=== PATIENT | female | born 1990 | race Caucasian/White ===

== ENCOUNTER 2023-04-08 14:55 | Emergency (ER) | payer BC, SELFPAY ==
[2023-04-08 15:35] VITALS: BP 127/79; PULSE 82; RESP 20; TEMP 37.2; O2SAT 99; BMI 18.6
--- NOTE | 2023-04-08 16:19 | CRLHL7_ITS ---
For Patients: As a result of the 21st Century Cures Act, medical imaging exams and procedure reports are released immediately into your electronic medical record. You may view this report before your referring provider. If you have questions, please contact your health care provider. INDICATION: RLQ AND EPIGASTRIC PAIN X3 DAYS Indication: Right lower quadrant/epigastric abdominal pain. Technique: CT of the abdomen and pelvis. 48 cc of Isovue 370 IV. Coronal/sagittal reconstructive images. Comparison: None. Findings: Lung bases: There is no pleural or pericardial effusion. The heart size is normal. The lung bases demonstrate no acute airspace disease. There is no basilar pneumothorax. There is no suspicious pulmonary nodule. Abdomen/pelvis: The liver morphology is non cirrhotic. There is diffuse hepatic steatosis. No focal liver lesion. Spleen size is normal. No adrenal mass. There is no obstructive urolith. Pelvic phleboliths present. Mild fat stranding in the right perirenal space. There is no pancreatic mass or glandular atrophy. There is inflammatory fat stranding present above the duodenum. This is well seen on series 2, image 58. No drainable fluid collection. Small amount of pelvic ascites. There is no free air. There is no evidence to indicate a mechanical small bowel or colonic obstruction. There is no transition point. The appendix is normal in caliber. The appendix is seen on series 4, image 46, measuring 5 millimeters. There is no inguinal or pelvic sidewall lymphadenopathy. The retroperitoneum and gastrohepatic ligament are normal. Celiac artery and SMA are patent. CRUZITO is patent. The bone windows demonstrate no suspicious bone lesions. Vertebral body heights are maintained. Alignment is preserved on sagittal reconstruction images. Impression: 1. Inflammatory fat stranding present in the upper abdomen, adjacent to the retroperitoneal portion of the duodenum. 2. Differential diagnosis includes acute interstitial edematous pancreatitis or duodenitis. 3. Suggest correlation with lipase levels. There is no drainable fluid collection, extraluminal gas, or evidence for necrotizing pancreatitis. 4. Normal caliber appendix. No periappendiceal inflammatory changes. 5. Case discussed with Dr. Cuellar, 04/08/23, 1735 hours. Dictated by Kory Nicolas MD @ 04/08/2023 5:37:12 PM Please note that all CT scans at this facility use dose modulation, iterative reconstruction, and/or weight-based dosing when appropriate to reduce radiation dose to as low as reasonably achievable. Dictated by: Kory Nicolas MD @ 04/08/2023 17:37:22 (Electronically Signed)
--- NOTE | 2023-04-08 16:23 | ED_ITS ---
HPI - General Adult General Date Seen: 04/08/23 Chief complaint: Abdominal Pain Stated complaint: abdominal pain Time Seen by Provider: 04/08/23 16:05 Source: patient Mode of arrival: ambulatory Limitations: no limitations History of Present Illness HPI narrative: Patient is a 32-year-old seen for abdominal and back pain for 3 days duration. She says that it waxes and wanes, at its most severe is very painful although sometimes it fades down to a more minimal pain. It has never gone away. Nothing seems to help or make it worse, she has not taken any medications at home because she says she does not like to take pills. She has had some nausea when the pain is severe, no vomiting. She has both epigastric pain and then right lower back and right lateral abdominal pain. Appetite has been decreased secondary to nausea. She has not had a bowel movement today, denies constipation, no diarrhea. Does have a history of endometriosis but this is typically pelvic in location. She has had temperatures in the 99 range, it went up to 100 once. Denies urinary symptoms aside from it looking more concentrated today. She says that she did drink yesterday for new 's Ruth the does not drink a lot otherwise. She denies any drug use. She vapes nicotine. No prior abdominal surgeries. Her last period was February 28, she says her periods are not regular. She is not on control, not actively trying to get . Related Data Allergies Allergy/AdvReac Type Severity Reaction Status Date / Time No Known Drug Allergies Allergy Verified 04/08/23 16:59 Review of Systems Status of ROS: Reports: 10 or more systems reviewed and unremarkable except as noted in History and below [facility] Social History Smoking Status: Current every day smoker Do you use any of these nicotine containing products: Vaping Products Second hand tobacco smoke exposure: No How often do you have a drink containing alcohol: 2-3 times a week How many standard drinks containing alcohol do you have on a typical day: 1 or 2 How often do you have six or more drinks on one occasion: Never AUDIT-C Alcohol total score: 3 Non-prescribed substance use: denies use Exam Narrative: Exam Narrative: Vital signs as noted above. In general, an alert, nontoxic young woman. She looks comfortable at this time. Head: Normocephalic, atraumatic. Eyes: Pupils are equal reactive. Extraocular movements are full. Conjunctivae are normal. ENT: Mucous membranes are moist. Throat is normal. Neck: Supple without lymphadenopathy. Heart: Regular rate and rhythm. No murmur or rub. Lungs: Clear bilaterally. No increased work of breathing, crackles or wheezes. Abdomen: Soft and nondistended. She has epigastric tenderness, less so right upper quadrant tenderness, tenderness in the right lower quadrant at McBurney's point with some voluntary guarding. No CVA tenderness. Extremities: Well perfused. No edema. No calf tenderness. Pulses intact. Neurologic: Patient is alert and oriented to person and place. Speech is fluent. Face is symmetric. Moves all extremities equally. Affect: Normal. Skin: Warm and dry. Well perfused. Const: Vital Signs, click to edit/add: Vital Signs - 24 hr 04/08/23 15:35 04/08/23 18:10 Temperature 99.0 F Pulse Rate [Pulse Oximeter] 82 86 Respiratory Rate 20 Blood Pressure [Ri ght Upper Arm] 127/79 115/81 Pulse Oximetry 99 99 Oxygen Delivery Me thod Room Air Room Air Documenting provider has reviewed patient's vital signs: yes Course Course ED Course: Diagnostic considerations are broad at this time. Epigastric pain is little unusual for appendicitis but that remains on the differential. Gastritis, cholecystitis, biliary colic, pancreatitis, UTI, kidney stone, ectopic , other ovarian pathology all remain on the differential at this time. Will give her some Toradol, fluids, Zofran. I have ordered a CT of the abdomen as I think given all of the possibilities this will give us the most information. I think the likelihood of this being purely ovarian for example ovarian cyst or torsion is low given the predominance of epigastric pain. Labs notable for a negative test, white blood cell count of 10, hemog lobin of 12.3. Metabolic panel fairly unremarkable, potassium slightly low at 3.3. Total bilirubin is 1.1, direct is 0.2, AST mildly elevated at 52 but ALT and alk-phos are normal. CRP mildly elevated at 3.5 and lipase elevated at 700. Urinalysis shows 4+ ketones, 2+ blood which I think is likely related to concentration of the urine. 2-5 red cells, 5-10 white cells many squames likely a contaminated specimen. CT by my review showed peripancreatic inflammation, she has some free fluid in the pelvis, final radiology read is as follows:Findings: Lung bases: There is no pleural or pericardial effusion. The heart size is normal. The lung bases demonstrate no acute airspace disease. There is no basilar pneumothorax. There is no suspicious pulmonary nodule. Abdomen/pelvis: The liver morphology is non cirrhotic. There is diffuse hepatic steatosis. No focal liver lesion. Spleen size is normal. No adrenal mass. There is no obstructive urolith. Pelvic phleboliths present. Mild fat stranding in the right perirenal space. There is no pancreatic mass or glandular atrophy. There is inflammatory fat stranding present above the duodenum. This is well seen on series 2, image 58. No drainable fluid collection. Small amount of pelvic ascites. There is no free air. There is no evidence to indicate a mechanical small bowel or colonic obstruction. There is no transition point. The appendix is normal in caliber. The appendix is seen on series 4, image 46, measuring 5 millimeters. There is no inguinal or pelvic sidewall lymphadenopathy. The retroperitoneum and gastrohepatic ligament are normal. Celiac artery and SMA are patent. CRUZITO is patent. The bone windows demonstrate no suspicious bone lesions. Vertebral body heights are maintained. Alignment is preserved on sagittal reconstruction images. Impression: 1. Inflammatory fat stranding present in the upper abdomen, adjacent to the retroperitoneal portion of the duodenum. 2. Differential diagnosis includes acute interstitial edematous pancreatitis or duodenitis. 3. Suggest correlation with lipase levels. There is no drainable fluid collection, extraluminal gas, or evidence for necrotizing pancreatitis. 4. Normal caliber appendix. No periappendiceal inflammatory changes. 5. Case discussed with Dr. Cuellar, 04/08/23, 1735 hours. I have discussed the diagnosis with the patient. In asking her more pointedly about her alcohol use, she says she drinks every weekend but she says she just drinks on the weekends. She notes that she was drinking a lot of vodka and has tried to cut back to seltzers. She denies prior history of pancreatitis. She did drink vodka yesterday with the holiday. I have reviewed with her that the pancreatitis is almost certainly secondary to alcohol use, that she should m inimize this in the future, and seek help if she finds that difficult to do. She does note that her brother has a history of drug addiction, she as a result does not take any kind of pain pills. She is not having any vomiting, is not requiring or interested in narcotic pain medication, I think it is reasonable to let her go home. Recommend clear fluids for the next couple of days, advance diet as able. Abstain from alcohol. Discussed reasons to return such as severe worsening pain, fevers, vomiting or other acute changes. Vital Signs Vital signs: Initial Vital Signs Temperature 99.0 F 04/08/23 15:35 Temperature Source Temporal Artery Scan 04/08/23 15:35 Pulse Rate 82 04/08/23 15:35 Respiratory Rate 20 04/08/23 15:35 Blood Pressure 127/79 04/08/23 15:35 Blood Pressure Mean 95 04/08/23 15:35 Pulse Oximetry 99 04/08/23 15:35 Oxygen Delivery Method Room Air 04/08/23 15:35 Vital Signs Temperature 99.0 F 04/08/23 15:35 Pulse Rate 82 04/08/23 15:35 Respiratory Rate 20 04/08/23 15:35 Blood Pressure 127/79 04/08/23 15:35 Pulse Oximetry 99 04/08/23 15:35 Oxygen Delivery Method Room Air 04/08/23 15:35 Temperature 99.0 F 04/08/23 15:35 Pulse Rate 86 04/08/23 18:10 Respiratory Rate 20 04/08/23 15:35 Blood Pressure 115/81 04/08/23 18:10 Pulse Oximetry 99 04/08/23 18:10 Oxygen Delivery Method Room Air 04/08/23 18:10 Medications Administered Medications: Discontinued Medications Generic Name Dose Route Start Last Admin Trade Name Freq PRN Reason Stop Dose Admin Sodium Chloride 1,000 mls @ 1,000 mls/hr 04/08/23 16:30 04/08/23 18:15 0.9 % Sodium Chloride 1000 Ml IV 04/08/23 17:29 Infused .Q1H KATHRINE Infusion Ketorolac Tromethamine 15 mg 04/08/23 16:17 04/08/23 16:50 Ketorolac 15 Mg/Ml Inj IVP 04/08/23 16:18 15 mg ONCE ONE Administration Ondansetron HCl 4 mg 04/08/23 16:17 04/08/23 16:50 Ondansetron 2 Mg/Ml Inj IVP 04/08/23 16:18 4 mg ONCE ONE Administration Medical Decision Making Lab Data Labs: Lab Results 04/08/23 04/08/23 Range/Units 16:28 16:32 WBC 9.98 (4.50-11.00) K/uL RBC 3.30 L (4.00-5.20) m/uL Hgb 12.3 (12.0-16.0) gm/dL Hct 36.4 (33.0-51.0) % MCV 110 H (80-100) fL MCH 37 H (26-34) pg MCHC 34 (32-36) gm/dL RDW Coeff of Unruly 14.0 (11.5-15.5) % Plt Count 250 (140-440) K/uL Neut % (Auto) 79.8 H (42.0-72.0) % Lymph % (Auto) 12.5 L (20-44) % [place] % (Auto) 6.9 (0.0-11.0) % Eos % (Auto) 0.3 (0.0-7.0) % Baso % (Auto) 0.2 (0.0-3.0) % Neut # (Auto) 8.00 H (1.7-7.0) K/uL Lymph # (Auto) 1.20 (0.90-2.90) K/uL [place] # (Auto) 0.70 (0.00-0.90) K/UL Eos # (Auto) 0.03 (0.00-0.50) K/uL Baso # (Auto) 0.02 (0.00-0.30) K/uL Abs Immat Gran (auto) 0.03 (0.00-0.30) K/uL Imm/Tot Granulo (auto) 0.3 % Sodium 137 (135-149) mmol/L Potassium 3.3 L (3.6-5.1) mmol/L Chloride 100 (96-114) mmol/L Carbon Dioxide 22 (20-32) mmol/L Anion Gap 15 (7-15) mEq/L BUN 7 (5-24) mg/dL Creatinine 0.4 L (0.5-1.5) mg/dL Estimated Creat Clear 139.92 Estimated GFR 133 ml/min Glucose 82 (60-115) mg/dL Calcium 8.8 (8.4-10.6) mg/dL Total Bilirubin 1.1 (0.1-1.5) mg/dL Direct Bilirubin 0.2 (0.0-0.5) mg/dL AST 52 H (12-35) U/L ALT 30 (4-35) U/L Alkaline Phosphatase 71 (40-150) U/L C-Reactive Protein 3.5 H (0.5-1.0) mg/dL Total Protein 7.5 (6.0-8.3) g/dL Albumin 4.7 (3.3-5.0) g/dL Lipase 701 H (23-300) U/L Urine Color Yellow (Yellow) Urine Appearance Cloudy A (Clear) Urine pH 5.5 (5.0-8.5) Ur Specific [place] >= 1.030 (1.000-1.030) Urine Protein 1+ A (Negative) Urine Glucose (UA) Negative (Negative) Urine Ketones 4+ A (Negative) Urine Blood 2+ A (Negative) Urine Nitrite Negative (Negative) Urine Bilirubin 1+ A (Negative) Urine Urobilinogen 0.2 (0.2-1.0) Ur Leukocyte Esterase Trace A (Negative) Urine RBC 2-5 A (0-2) Urine WBC 5-10 A (0-5) Ur Squamous Epith Cells Many A (None-Few) Urine Bacteria Few A (None) Urine HCG, Qual Negative (Negative) Discharge Plan Discharge Clinical Impression: Pancreatitis Patient Disposition: Home, Self-Care Condition: Stable Instructions: Pancreatitis (ED) Additional Instructions: Clear liquids for 24-48 hours, okay to advance to bland food after 24 hours if you are feeling better, but if symptoms worsen you may need to go back to clear liquids for another day or 2. For vomiting, severe uncontrolled pain, fevers, or other general worsening return to the emergency department. I suspect that your pancreatitis is associated with alcohol use, and therefore would recommend that you minimize alcohol intake in the future. There is high likelihood that you will develop pancreatitis again if you drink significant amounts of alcohol. You can use Zofran for nausea if needed. Tylenol or ibuprofen for pain. Recheck with primary care in about a week. Follow Up/Referrals: Opal Prado, DO [Primary Care Provider] - Stand Alone Forms: MyHealth Info Instructions
[2023-04-08 16:32] LABS: Appearance Urine Cloudy (Clear); Bilirubin Urine 1+ (Negative); Blood Urine 2+ (Negative); Color Urine Yellow (Yellow); Glucose Urine Negative (Negative); Ketones Urine 4+ (Negative); Leukocyte Esterase Urine Trace (Negative); Nitrite Urine Negative (Negative); Protein Urine 1+ (Negative); Specific Gravity Urine >= 1.030 (1.000-1.030); Urobilinogen Urine 0.2 (0.2-1.0); pH Urine 5.5 (5.0-8.5)
[2023-04-08 16:36] LABS: Ur HCG Qualitative* Negative (Negative)
[2023-04-08 16:44] LABS: Bacteria Urine Few; Squamous Epithelial Cell Urine Many (None-Few)
[2023-04-08] MEDS: KETOROLAC 15 MG/ML inj IVP (16:50)
[2023-04-08] MEDS: 0.9 % SODIUM CHLORIDE 1000 ml 1,000 ML IV (16:50)
[2023-04-08] MEDS: ONDANSETRON 2 MG/ML inj 4 MG IVP (16:50)
[2023-04-08 17:05] LABS: Basophils Absolute Auto 0.02 K/uL (0.00-0.30); Basophils Percent Auto 0.2 % (0.0-3.0); Eosinophils Absolute Auto 0.03 K/uL (0.00-0.50); Eosinophils Percent Auto 0.3 % (0.0-7.0); Hematocrit 36.4 % (33.0-51.0); Hemoglobin* 12.3 gm/dL (12.0-16.0); Immature Granulocytes Abs Auto 0.03 K/uL (0.00-0.30); Immature Granulocytes Pct Auto 0.3 %; Lymphocytes Percent Auto 12.5 % (20-44); Mean Corpuscular HGB Conc 34 gm/dL (32-36); Mean Corpuscular Hemoglobin 37 pg (26-34); Mean Corpuscular Volume 110 fL (80-100); Monocytes Percent Auto 6.9 % (0.0-11.0); Neutrophils Percent Auto 79.8 % (42.0-72.0); Platelet Count* 250 K/uL (140-440); White Blood Count* 9.98 K/uL (4.50-11.00)
[2023-04-08 17:18] LABS: Chloride* 100 mmol/L (96-114)
[2023-04-08 17:19] LABS: Albumin* 4.7 g/dL (3.3-5.0); Slide Review Reflex No; Sodium* 137 mmol/L (135-149)
[2023-04-08 17:20] LABS: Potassium* 3.3 mmol/L (3.6-5.1)
[2023-04-08 17:22] LABS: Alkaline Phosphatase* 71 U/L (40-150); Anion Gap 15 mEq/L (7-15); Aspartate Amino Transferase* 52 U/L (12-35); Bilirubin Direct* 0.2 mg/dL (0.0-0.5); Bilirubin Total* 1.1 mg/dL (0.1-1.5); Blood Urea Nitrogen* 7 mg/dL (5-24); Carbon Dioxide* 22 mmol/L (20-32); Creatinine* 0.4 mg/dL (0.5-1.5); Est. Creatinine Clearance* 139.92; Estimated Glomerular Filt Rate 133 ml/min; Total Protein* 7.5 g/dL (6.0-8.3)
[2023-04-08 17:23] LABS: Alanine Aminotransferase* 30 U/L (4-35); Calcium* 8.8 mg/dL (8.4-10.6); Glucose* 82 mg/dL (60-115); Lipase* 701 U/L (23-300)
[2023-04-08 17:25] LABS: C Reactive Protein* 3.5 mg/dL (0.5-1.0)
[2023-04-08 18:10] VITALS: BP 115/81; PULSE 86; O2SAT 99
== END 2023-04-08 18:45 | disposition home or self-care (01) ==
PROVIDERS: Emergency Provider Emergency Medicine; PCP Family Medicine
DX: K85.20 Alcohol induced acute pancreatitis without necrosis or infection (principal)
CPT/HCPCS: 36415; 74177; 80048; 80076; 81001; 81025; 83690; 85025; 86140; 87086; 96374; 96375; 99284; J1885; J2405; J7030; Q9967

== ENCOUNTER 2023-06-17 04:07 | Emergency (ER) | payer BC, SELFPAY ==
[2023-06-17] VITALS (20 sets, daily range): BP systolic 95–143; BP diastolic 54–105; PULSE 77–107; RESP 16; TEMP 36.9–37; O2SAT 95–100; BMI 17.8
[2023-06-17 04:47] LABS: Lactate* 1.8 mmol/L (0.5-1.9)
[2023-06-17 04:48] LABS: Basophils Percent Auto 0.1 % (0.0-3.0); Hematocrit 43.5 % (33.0-51.0); Hemoglobin* 14.7 gm/dL (12.0-16.0); Immature Granulocytes Pct Auto 0.4 %; Lymphocytes Percent Auto 5.5 % (20-44); Mean Corpuscular HGB Conc 34 gm/dL (32-36); Mean Corpuscular Hemoglobin 32 pg (26-34); Mean Corpuscular Volume 96 fL (80-100); Monocytes Percent Auto 5.1 % (0.0-11.0); Neutrophils Percent Auto 88.9 % (42.0-72.0); Platelet Count* 291 K/uL (140-440); RDW Coefficient of Variation % 14.5 % (11.5-15.5); Red Blood Count 4.54 m/uL (4.00-5.20); White Blood Count* 19.62 K/uL (4.50-11.00)
[2023-06-17 04:50] LABS: Slide Review Reflex No
[2023-06-17 04:51] LABS: Albumin* 5.5 g/dL (3.3-5.0); Chloride* 94 mmol/L (96-114); Sodium* 134 mmol/L (135-149)
--- NOTE | 2023-06-17 04:51 | ED_ITS ---
HPI - General Adult General Chief complaint: Nausea/Vomiting <Callie Brown MD - Last Filed: 06/17/23 23:57> Stated complaint: pancreatitis <Callie Brown MD - Last Filed: 06/17/23 23:57> Time Seen by Provider: 06/17/23 04:17 <Callie Brown MD - Last Filed: 06/17/23 23:57> History of Present Illness HPI narrative: 32-year-old female presents the emergency department with 3 days of abdominal pain, nausea and vomiting. She has a history of chronic GERD for the past 15+ years, typically uses daily omeprazole. She does have a history of heavy alcohol use and liver disease in the past. Reports that she had pancreatitis back in April, did not need to be hospitalized. States that her pain feels similar to that episode. We were able to pull up an a line and note from May. It looks like she saw her primary care provider for chronic castle creatitis and GERD. At that time it states that she was not drinking any alcohol. BMI was only 17 at the time. It looked like she was started on some sucralfate to go with her omeprazole. Patient denies any significant changes since. She has an endoscopy scheduled for July 07. Denies any prior endoscopy or history of GI bleed. No bloody stools, no bloody vomit. No fevers. No trauma or injury. No urinary changes, denies chance of . Pain is constant, mid abdomen and radiates to the back. Has not tried taking any pain medication for this as she cannot even hold down water. Past medical history notable for chronic pancreatitis and GERD. Current home meds omeprazole and has a prescription for Carafate. Denies use of alcohol, cigarettes or marijuana. ROS notable for the GI symptoms as described above, otherwise also notable for dizziness with standing and some ringing in her right ear with standing, associated with the dizziness. <Callie Brown MD - Last Filed: 06/17/23 23:57> Related Data Home medications: Home Medications Medication Instructions Recorded Confirmed cyanocobalamin (vitamin B-12) PO 06/17/23 omeprazole 40 mg capsule,delayed 40 mg PO DAILY 06/17/23 06/17/23 release ondansetron 4 mg disintegrating 4 mg PO Q6-8H PRN 06/17/23 06/17/23 tablet <Callie Brown MD - Last Filed: 06/17/23 23:57> Allergies/adverse reactions: Allergies Allergy/AdvReac Type Severity Reaction Status Date / Time No Known Drug Allergies Allergy Verified 04/08/23 16:59 <Callie Brown MD - Last Filed: 06/17/23 23:57> PFSH PFSH Medical History: Medical History Alcohol-induced pancreatitis ?K85.20 - Alcohol induced acute pancreatitis without necrosis or infection (ICD-10) GERD (gastroesophageal reflux disease) ?K21.9 - Gastro-esophageal reflux disease without esophagitis (ICD-10) Alcoholic liver disease ?K70.9 - Alcoholic liver disease, unspecified (ICD-10) Macrocytic anemia ?D53.9 - Nutritional anemia, unspecified (ICD-10) Fatty liver ?K76.0 - Fatty (change of) liver, not elsewhere classified (ICD-10) HTN (hypertension) ?I10 - Essential (primary) hypertension (ICD-10) 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) Palpitations ?R00.2 - Palpitations (ICD-10) Anxiety ?F41.9 - Anxiety disorder, unspecified (ICD-10) Major depression ?F32.9 - Major depressive disorder, single episode, unspecified (ICD-10) Dysmenorrhea ?N94.6 - Dysmenorrhea, unspecified (ICD-10) <Callie Brown MD - Last Filed: 06/17/23 23:57> Social History: Social History Smoking Status: Current every day smoker Do you use any of these nicotine containing products: Vaping Products Second hand tobacco smoke exposure: No How often do you have a drink containing alcohol: never How often do you have six or more drinks on one occasion: Never AUDIT-C Alcohol total score: 0 Non-prescribed substance use: denies use <Callie Brown MD - Last Filed: 06/17/23 23:57> Exam Const: Vital Signs, click to edit/add: Vital Signs - 24 hr 06/17/23 04:18 06/17/23 05:10 06/17/23 06:01 Temperature 98.5 F Pulse Rate 82 89 Pulse Rate [Pulse Oximeter] 107 H Respiratory Rate 16 16 16 Blood Pressure 127/85 108/74 Blood Pressure [Le ft Upper Arm] 143/105 H Pulse Oximetry 98 100 98 Oxygen Delivery Me thod Room Air 06/17/23 06:23 06/17/23 06:24 06/17/23 06:30 Temperature Pulse Rate 95 96 87 Pulse Rate [Pulse Oximeter] Respiratory Rate 16 Blood Pressure 98/73 Blood Pressure [Le ft Upper Arm] Pulse Oximetry 99 99 99 Oxygen Delivery Me thod 06/17/23 06:45 06/17/23 07:00 06/17/23 07:02 Temperature Pulse Rate 87 92 90 Pulse Rate [Pulse Oximeter] Respiratory Rate 16 Blood Pressure 114/65 Blood Pressure [Le ft Upper Arm] Pulse Oximetry 99 100 100 Oxygen Delivery Me thod 06/17/23 07:15 06/17/23 07:30 06/17/23 07:41 Temperature Pulse Rate 82 88 Pulse Rate [Pulse Oximeter] Respiratory Rate 16 Blood Pressure 113/82 Blood Pressure [Le ft Upper Arm] Pulse Oximetry 100 97 Oxygen Delivery Me thod 06/17/23 09:15 06/17/23 09:16 06/17/23 11:43 Temperature 98.6 F Pulse Rate 77 80 Pulse Rate [Pulse Oximeter] 92 Respiratory Rate 16 16 Blood Pressure 100/64 Blood Pressure [Le ft Upper Arm] 95/65 Pulse Oximetry 98 98 98 Oxygen Delivery Me thod Room Air 06/17/23 11:44 06/17/23 14:16 06/17/23 14:17 Temperature 98.4 F Pulse Rate 79 Pulse Rate [Pulse Oximeter] 88 Respiratory Rate 16 Blood Pressure 95/65 102/54 L Blood Pressure [Le ft Upper Arm] 102/54 L Pulse Oximetry 98 95 Oxygen Delivery Me thod Room Air 06/17/23 15:42 06/17/23 17:39 Temperature Pulse Rate Pulse Rate [Pulse Oximeter] Respiratory Rate Blood Pressure 109/71 132/74 Blood Pressure [Le ft Upper Arm] Pulse Oximetry Oxygen Delivery Me thod <Callie Brown MD - Last Filed: 06/17/23 23:57> Vital Signs, click to edit/add: Vital Signs - 24 hr 06/17/23 04:18 06/17/23 05:10 06/17/23 06:01 Temperature 98.5 F Pulse Rate 82 89 Pulse Rate [Pulse Oximeter] 107 H Respiratory Rate 16 16 16 Blood Pressure 127/85 108/74 Blood Pressure [Le ft Upper Arm] 143/105 H Pulse Oximetry 98 100 98 Oxygen Delivery Me thod Room Air 06/17/23 06:23 06/17/23 06:24 06/17/23 06:30 Temperature Pulse Rate 95 96 87 Pulse Rate [Pulse Oximeter] Respiratory Rate 16 Blood Pressure 98/73 Blood Pressure [Le ft Upper Arm] Pulse Oximetry 99 99 99 Oxygen Delivery Me thod 06/17/23 06:45 06/17/23 07:00 06/17/23 07:02 Temperature Pulse Rate 87 92 90 Pulse Rate [Pulse Oximeter] Respiratory Rate 16 Blood Pressure 114/65 Blood Pressure [Le ft Upper Arm] Pulse Oximetry 99 100 100 Oxygen Delivery Me thod 06/17/23 07:15 06/17/23 07:30 06/17/23 07:41 Temperature Pulse Rate 82 88 Pulse Rate [Pulse Oximeter] Respiratory Rate 16 Blood Pressure 113/82 Blood Pressure [Le ft Upper Arm] Pulse Oximetry 100 97 Oxygen Delivery Me thod 06/17/23 09:15 06/17/23 09:16 06/17/23 11:43 Temperature 98.6 F Pulse Rate 77 80 Pulse Rate [Pulse Oximeter] 92 Respiratory Rate 16 16 Blood Pressure 100/64 Blood Pressure [Le ft Upper Arm] 95/65 Pulse Oximetry 98 98 98 Oxygen Delivery Me thod Room Air 06/17/23 11:44 06/17/23 14:16 06/17/23 14:17 Temperature 98.4 F Pulse Rate 79 Pulse Rate [Pulse Oximeter] 88 Respiratory Rate 16 Blood Pressure 95/65 102/54 L Blood Pressure [Le ft Upper Arm] 102/54 L Pulse Oximetry 98 95 Oxygen Delivery Me thod Room Air 06/17/23 15:42 06/17/23 17:39 Temperature Pulse Rate Pulse Rate [Pulse Oximeter] Respiratory Rate Blood Pressure 109/71 132/74 Blood Pressure [Le ft Upper Arm] Pulse Oximetry Oxygen Delivery Me thod <Pasquale Zavala MD - Last Filed: 06/25/23 05:49> Vital Signs, click to edit/add: Vital Signs - 24 hr 06/17/23 04:18 06/17/23 05:10 06/17/23 06:01 Temperature 98.5 F Pulse Rate 82 89 Pulse Rate [Pulse Oximeter] 107 H Respiratory Rate 16 16 16 Blood Pressure 127/85 108/74 Blood Pressure [Le ft Upper Arm] 143/105 H Pulse Oximetry 98 100 98 Oxygen Delivery Me thod Room Air 06/17/23 06:23 06/17/23 06:24 06/17/23 06:30 Temperature Pulse Rate 95 96 87 Pulse Rate [Pulse Oximeter] Respiratory Rate 16 Blood Pressure 98/73 Blood Pressure [Le ft Upper Arm] Pulse Oximetry 99 99 99 Oxygen Delivery Me thod 06/17/23 06:45 06/17/23 07:00 06/17/23 07:02 Temperature Pulse Rate 87 92 90 Pulse Rate [Pulse Oximeter] Respiratory Rate 16 Blood Pressure 114/65 Blood Pressure [Le ft Upper Arm] Pulse Oximetry 99 100 100 Oxygen Delivery Me thod 06/17/23 07:15 06/17/23 07:30 06/17/23 07:41 Temperature Pulse Rate 82 88 Pulse Rate [Pulse Oximeter] Respiratory Rate 16 Blood Pressure 113/82 Blood Pressure [Le ft Upper Arm] Pulse Oximetry 100 97 Oxygen Delivery Me thod 06/17/23 09:15 06/17/23 09:16 06/17/23 11:43 Temperature 98.6 F Pulse Rate 77 80 Pulse Rate [Pulse Oximeter] 92 Respiratory Rate 16 16 Blood Pressure 100/64 Blood Pressure [Le ft Upper Arm] 95/65 Pulse Oximetry 98 98 98 Oxygen Delivery Me thod Room Air 06/17/23 11:44 06/17/23 14:16 06/17/23 14:17 Temperature 98.4 F Pulse Rate 79 Pulse Rate [Pulse Oximeter] 88 Respiratory Rate 16 Blood Pressure 95/65 102/54 L Blood Pressure [Le ft Upper Arm] 102/54 L Pulse Oximetry 98 95 Oxygen Delivery Me thod Room Air 06/17/23 15:42 06/17/23 17:39 Temperature Pulse Rate Pulse Rate [Pulse Oximeter] Respiratory Rate Blood Pressure 109/71 132/74 Blood Pressure [Le ft Upper Arm] Pulse Oximetry Oxygen Delivery Me thod <Darrell Mora DO - Last Filed: 06/17/23 18:30> Documenting provider has reviewed patient's vital signs: yes <Callie Brown MD - Last Filed: 06/17/23 23:57> Other: Very thin, appears dehydrated and smells strongly of ketones. <Callie Brown MD - Last Filed: 06/17/23 23:57> HENMT: Common normals: normocephalic <Callie Brown MD - Last Filed: 06/17/23 23:57> Head and scalp: normocephalic <Callie Brown MD - Last Filed: 06/17/23 23:57> Other: Facial scarring consistent with her reported procedure. Oropharynx is very dry, lips are cracked and fissured. Normal dentition. <Callie Brown MD - Last Filed: 06/17/23 23:57> Eye: Common normals: conjunctivae normal and no scleral icterus <Callie Brown MD - Last Filed: 06/17/23 23:57> General eye: normal appearance of both eyes <Callie Brown MD - Last Filed: 06/17/23 23:57> Conjunctiva: conjunctiva(e) normal <Callie Brown MD - Last Filed: 06/17/23 23:57> Neck & C-Spine: Common normals: full ROM and no lymphadenopathy <Callie Brown MD - Last Filed: 06/17/23 23:57> Resp: Common normals: normal respiratory effort, no use of accessory muscles and clear to auscultation bilaterally <Callie Brown MD - Last Filed: 06/17/23 23:57> Effort & inspection: able to speak in complete sentences <Callie Brown MD - Last Filed: 06/17/23 23:57> Auscultation: clear to auscultation bilaterally <Callie Brown MD - Last Filed: 06/17/23 23:57> Cardio: Common normals: regular rate, regular rhythm, S1 normal heart sound, S2 normal heart sound and no murmurs <Callie Brown MD - Last Filed: 06/17/23 23:57> Rate: regular rate <Callie Brown MD - Last Filed: 06/17/23 23:57> Rhythm: regular rhythm <MD Eric Yu Last Filed: 06/17/23 23:57> Heart sounds: S1 normal and S2 normal <Callie Brown MD - Last Filed: 06/17/23 23:57> GI: Common normals: Normal to inspection, nondistended, normoactive bowel sounds present and no masses <Callie Brown MD - Last Filed: 06/17/23 23:57> Other: Liver seems to cm below costal margin. Moderately tender to mid abdomen and epigastrium without any rebound tenderness or guarding. <Callie Brown MD - Last Filed: 06/17/23 23:57> : Common normals: no CVA tenderness <Callie Brown MD - Last Filed: 06/17/23 23:57> Bladder/kidney exam: no CVA tenderness <Callie Brown MD - Last Filed: 06/17/23 23:57> Back & Pelvis: Common normals: no CVA tenderness <Callie Brown MD - Last Filed: 06/17/23 23:57> Thoracic spine/upper back: normal to inspection <MD Eric Yu Last Filed: 06/17/23 23:57> Lumbar spine/lower back: normal to inspection <Callie Bronw MD - Last Filed: 06/17/23 23:57> Extremity: Common normals: normal to inspection, normal capillary refill and no pedal edema <Callie Brown MD - Last Filed: 06/17/23 23:57> Neuro: Speech: speech normal <Callie Brown MD - Last Filed: 06/17/23 23:57> Motor exam: no tremor noted and no movement abnormalities noted <Callie Brown MD - Last Filed: 06/17/23 23:57> Psych: Activity/motor behavior: appropriate eye contact <Callie Brown MD - Last Filed: 06/17/23 23:57> Mood and affect: euthymic mood <Callie Brown MD - Last Filed: 06/17/23 23:57> Insight: insight good <Callie Brown MD - Last Filed: 06/17/23 23:57> Judgement: judgment good <Callie Brown MD - Last Filed: 06/17/23 23:57> Skin: Common normals: no rashes or lesions noted <Callie Brown MD - Last Filed: 06/17/23 23:57> General skin exam: no rashes or lesions noted <Callie Brown MD - Last Filed: 06/17/23 23:57> Course Course ED Course: Abdominal pain, nausea vomiting that seems most likely consistent with flare up of acute on chronic pancreatitis. Flare of GERD since she has not been able to use her omeprazole. Other differential diagnosis including ischemic bowel, bowel obstruction, gallbladder disease, gallstone, volvulus, urine infection, kidney stone, amongst others. Smell strongly of ketones, tachycardic. She claims to not be drinking alcohol but the hypertension in the setting of dehydration does make me question continued use. Will obtain typical labs including liver profile, ammonia, lactate, magnesium, electrolytes, kidney function, lipase. Start 1 L of normal saline, will then likely switch over to LR. Four of Zofran, 5 of oxycodone and IV Protonix. Await labs. Consider imaging if needed. <Callie Brown MD - Last Filed: 06/17/23 23:57> Reevaluation(s) Time of Reevaluation #1: 05:32 <Callie Brown MD - Last Filed: 06/17/23 23:57> Reevaluation #1: Discussed lab findings with family and patient. The leukocytosis is worrisome. I am not surprised by the pancreatitis. She did not tolerate the oral pain medicine, will give IV. Will also give Compazine as she is still vomiting. 1 L of fluid finished, will hang a L of LR now. She will likely need admission but getting an abdominal CT due to concern regarding that leukocytosis. <Callie Brown MD - Last Filed: 06/17/23 23:57> Time of Reevaluation #2: 07:00 <Callie Brown MD - Last Filed: 06/17/23 23:57> Reevaluation #2: Counseled family on CT findings. Suspect pancreatic pseudocyst. Did briefly discuss with our General surgery team, they agree with my recommendation that she will need transfer. I have called up to [facility], am awaiting callback for transfer from hepatobiliary surgical pain. Am concerned about the leukocytosis and will ask them about antibiotics. Her blood pressure has come down quite a bit, she is now actually below 100 but she is no longer tachycardic. She has not had a fever. <Callie Brown MD - Last Filed: 06/17/23 23:57> Time of Reevaluation #3: 08:15 <Callie Brown MD - Last Filed: 06/17/23 23:57> Reevaluation #3: Accepted by hospitalist. Dr. Zepeda. Anticipate 48 hour bed delay. P.r.n. Dilaudid is ordered. Will continue replacing maintenance fluid, remained NPO and begin potassium replacement. We will need to arrange ALS ground transfer once available. Will update family and hand over care to me in coming day shift partner. <Callie Brown MD - Last Filed: 06/17/23 23:57> Accepted by hospitalist. Dr. Zepeda. Anticipate 4-8 hour bed delay. P.r.n. Dilaudid is ordered. Will continue replacing maintenance fluid, remained NPO and begin potassium replacement. We will need to arrange ALS ground transfer once available. Will update family and hand over care to me in coming day shift partner. <Pasquale Zavala MD - Last Filed: 06/25/23 05:49> Additional Reevaluation(s): 12:22 p.m. care was accepted in sign-out from prior provider. Briefly, patient with pseudocyst, possibly infected, along with leukocytosis. On initial arrival patient is tachycardic and hypertensive but afebrile. Patient is given IV fluids in the emergency department, most recent blood pressure 95/65. Maintenance fluids will be increased to continue to monitor closely, waiting for transfer. <Pasquale Zavala MD - Last Filed: 06/25/23 05:49> Vital Signs Vital signs: Initial Vital Signs Temperature 98.5 F 06/17/23 04:18 Temperature Source Temporal Artery Scan 06/17/23 04:18 Pulse Rate 107 H 06/17/23 04:18 Respiratory Rate 16 06/17/23 04:18 Blood Pressure 143/105 H 06/17/23 04:18 Blood Pressure Mean 117 H 06/17/23 04:18 Blood Pressure Position Supine 06/17/23 04:18 Pulse Oximetry 98 06/17/23 04:18 Oxygen Delivery Method Room Air 06/17/23 04:18 Vital Signs Temperature 98.5 F 06/17/23 04:18 Pulse Rate 107 H 06/17/23 04:18 Respiratory Rate 16 06/17/23 04:18 Blood Pressure 143/105 H 06/17/23 04:18 Pulse Oximetry 98 06/17/23 04:18 Oxygen Delivery Method Room Air 06/17/23 04:18 Temperature 98.4 F 06/17/23 14:17 Pulse Rate 88 06/17/23 14:17 Respiratory Rate 16 06/17/23 14:17 Blood Pressure 132/74 06/17/23 17:39 Pulse Oximetry 95 06/17/23 14:17 Oxygen Delivery Method Room Air 06/17/23 14:17 <Callie Brown MD - Last Filed: 06/17/23 23:57> Initial Vital Signs Temperature 98.5 F 06/17/23 04:18 Temperature Source Temporal Artery Scan 06/17/23 04:18 Pulse Rate 107 H 06/17/23 04:18 Respiratory Rate 16 06/17/23 04:18 Blood Pressure 143/105 H 06/17/23 04:18 Blood Pressure Mean 117 H 06/17/23 04:18 Blood Pressure Position Supine 06/17/23 04:18 Pulse Oximetry 98 06/17/23 04:18 Oxygen Delivery Method Room Air 06/17/23 04:18 Vital Signs Temperature 98.5 F 06/17/23 04:18 Pulse Rate 107 H 06/17/23 04:18 Respiratory Rate 16 06/17/23 04:18 Blood Pressure 143/105 H 06/17/23 04:18 Pulse Oximetry 98 06/17/23 04:18 Oxygen Delivery Method Room Air 06/17/23 04:18 Temperature 98.4 F 06/17/23 14:17 Pulse Rate 88 06/17/23 14:17 Respiratory Rate 16 06/17/23 14:17 Blood Pressure 132/74 06/17/23 17:39 Pulse Oximetry 95 06/17/23 14:17 Oxygen Delivery Method Room Air 06/17/23 14:17 <Pasquale Zavala MD - Last Filed: 06/25/23 05:49> Initial Vital Signs Temperature 98.5 F 06/17/23 04:18 Temperature Source Temporal Artery Scan 06/17/23 04:18 Pulse Rate 107 H 06/17/23 04:18 Respiratory Rate 16 06/17/23 04:18 Blood Pressure 143/105 H 06/17/23 04:18 Blood Pressure Mean 117 H 06/17/23 04:18 Blood Pressure Position Supine 06/17/23 04:18 Pulse Oximetry 98 06/17/23 04:18 Oxygen Delivery Method Room Air 06/17/23 04:18 Vital Signs Temperature 98.5 F 06/17/23 04:18 Pulse Rate 107 H 06/17/23 04:18 Respiratory Rate 16 06/17/23 04:18 Blood Pressure 143/105 H 06/17/23 04:18 Pulse Oximetry 98 06/17/23 04:18 Oxygen Delivery Method Room Air 06/17/23 04:18 Temperature 98.4 F 06/17/23 14:17 Pulse Rate 88 06/17/23 14:17 Respiratory Rate 16 06/17/23 14:17 Blood Pressure 132/74 06/17/23 17:39 Pulse Oximetry 95 06/17/23 14:17 Oxygen Delivery Method Room Air 06/17/23 14:17 <Darrell Mora DO - Last Filed: 06/17/23 18:30> Medications Administered Medications: Discontinued Medications Generic Name Dose Route Start Last Admin Trade Name Freq PRN Reason Stop Dose Admin Hydromorphone HCl 0.5 mg 06/17/23 05:29 06/17/23 05:34 Hydromorphone 0.5 Mg/0.5 Ml Inj IVP 06/17/23 05:30 0.5 mg ONCE ONE Administration Hydromorphone HCl 0.5 mg 06/17/23 07:58 06/17/23 14:16 Hydromorphone 0.5 Mg/0.5 Ml Inj IVP 0.5 mg Q1H PRN Administration Pain Sodium Chloride 1,000 mls @ 1,000 mls/hr 06/17/23 04:54 06/17/23 05:39 0.9 % Sodium Chloride 1000 Ml IV 06/17/23 05:53 Infused .Q1H KATHRINE Infusion Lactated Ringer's 1,000 mls @ 500 mls/hr 06/17/23 05:29 06/17/23 07:42 Lactated Ringers 1000 Ml IV 06/17/23 07:28 Infused .Q2H KATHRINE Infusion Potassium Chloride 10 meq in 100 mls @ 100 mls/hr 06/17/23 07:00 06/17/23 09:18 Potassium Chloride IVPB 06/17/23 09:29 Infused Q90M KATHRINE Infusion Sodium Chloride 1,000 mls @ 75 mls/hr 06/17/23 07:21 06/17/23 12:27 0.9 % Sodium Chloride 1000 Ml IV 125 mls/hr .[id number] KATHRINE Infusion Sodium Chloride 1,000 mls @ 125 mls/hr 06/17/23 12:22 06/17/23 16:32 0.9 % Sodium Chloride 1000 Ml IV 125 mls/hr .Q8H KATHRINE Administration Lorazepam 0.5 mg 06/17/23 08:16 06/17/23 08:29 Lorazepam 2 Mg/Ml Inj IVP 0.5 mg Q6H PRN Administration Nausea And Vomiting Ondansetron HCl 4 mg 06/17/23 04:37 06/17/23 04:57 Ondansetron 2 Mg/Ml Inj IVP 06/17/23 04:38 4 mg ONCE ONE Administration Oxycodone HCl 5 mg 06/17/23 04:49 06/17/23 05:10 Oxycodone 5 Mg Tablet PO 06/17/23 04:50 5 mg ONCE ONE Administration Pantoprazole Sodium 40 mg 06/17/23 04:49 06/17/23 04:57 Pantoprazole Sodium 40 Mg Inj IVP 06/17/23 04:50 40 mg ONCE ONE Administration Prochlorperazine 5 mg 06/17/23 05:29 06/17/23 05:34 Prochlorperazine 5 Mg/Ml Vial IV 06/17/23 05:30 5 mg ONCE ONE Administration <Callie Brown MD - Last Filed: 06/17/23 23:57> Discontinued Medications Generic Name Dose Route Start Last Admin Trade Name Freq PRN Reason Stop Dose Admin Hydromorphone HCl 0.5 mg 06/17/23 05:29 06/17/23 05:34 Hydromorphone 0.5 Mg/0.5 Ml Inj IVP 06/17/23 05:30 0.5 mg ONCE ONE Administration Hydromorphone HCl 0.5 mg 06/17/23 07:58 06/17/23 14:16 Hydromorphone 0.5 Mg/0.5 Ml Inj IVP 0.5 mg Q1H PRN Administration Pain Sodium Chloride 1,000 mls @ 1,000 mls/hr 06/17/23 04:54 06/17/23 05:39 0.9 % Sodium Chloride 1000 Ml IV 06/17/23 05:53 Infused .Q1H KATHRINE Infusion Lactated Ringer's 1,000 mls @ 500 mls/hr 06/17/23 05:29 06/17/23 07:42 Lactated Ringers 1000 Ml IV 06/17/23 07:28 Infused .Q2H KATHRINE Infusion Potassium Chloride 10 meq in 100 mls @ 100 mls/hr 06/17/23 07:00 06/17/23 09:18 Potassium Chloride IVPB 06/17/23 09:29 Infused Q90M KATHRINE Infusion Sodium Chloride 1,000 mls @ 75 mls/hr 06/17/23 07:21 06/17/23 12:27 0.9 % Sodium Chloride 1000 Ml IV 125 mls/hr .[id number] KATHRINE Infusion Sodium Chloride 1,000 mls @ 125 mls/hr 06/17/23 12:22 06/17/23 16:32 0.9 % Sodium Chloride 1000 Ml IV 125 mls/hr .Q8H KATHRINE Administration Lorazepam 0.5 mg 06/17/23 08:16 06/17/23 08:29 Lorazepam 2 Mg/Ml Inj IVP 0.5 mg Q6H PRN Administration Nausea And Vomiting Ondansetron HCl 4 mg 06/17/23 04:37 06/17/23 04:57 Ondansetron 2 Mg/Ml Inj IVP 06/17/23 04:38 4 mg ONCE ONE Administration Oxycodone HCl 5 mg 06/17/23 04:49 06/17/23 05:10 Oxycodone 5 Mg Tablet PO 06/17/23 04:50 5 mg ONCE ONE Administration Pantoprazole Sodium 40 mg 06/17/23 04:49 06/17/23 04:57 Pantoprazole Sodium 40 Mg Inj IVP 06/17/23 04:50 40 mg ONCE ONE Administration Prochlorperazine 5 mg 06/17/23 05:29 06/17/23 05:34 Prochlorperazine 5 Mg/Ml Vial IV 06/17/23 05:30 5 mg ONCE ONE Administration <Pasquale Zavala MD - Last Filed: 06/25/23 05:49> Discontinued Medications Generic Name Dose Route Start Last Admin Trade Name Freq PRN Reason Stop Dose Admin Hydromorphone HCl 0.5 mg 06/17/23 05:29 06/17/23 05:34 Hydromorphone 0.5 Mg/0.5 Ml Inj IVP 06/17/23 05:30 0.5 mg ONCE ONE Administration Hydromorphone HCl 0.5 mg 06/17/23 07:58 06/17/23 14:16 Hydromorphone 0.5 Mg/0.5 Ml Inj IVP 0.5 mg Q1H PRN Administration Pain Sodium Chloride 1,000 mls @ 1,000 mls/hr 06/17/23 04:54 06/17/23 05:39 0.9 % Sodium Chloride 1000 Ml IV 06/17/23 05:53 Infused .Q1H KATHRINE Infusion Lactated Ringer's 1,000 mls @ 500 mls/hr 06/17/23 05:29 06/17/23 07:42 Lactated Ringers 1000 Ml IV 06/17/23 07:28 Infused .Q2H KATHRINE Infusion Potassium Chloride 10 meq in 100 mls @ 100 mls/hr 06/17/23 07:00 06/17/23 09:18 Potassium Chloride IVPB 06/17/23 09:29 Infused Q90M KATHRINE Infusion Sodium Chloride 1,000 mls @ 75 mls/hr 06/17/23 07:21 06/17/23 12:27 0.9 % Sodium Chloride 1000 Ml IV 125 mls/hr .[id number] KATHRINE Infusion Sodium Chloride 1,000 mls @ 125 mls/hr 06/17/23 12:22 06/17/23 16:32 0.9 % Sodium Chloride 1000 Ml IV 125 mls/hr .Q8H KATHRINE Administration Lorazepam 0.5 mg 06/17/23 08:16 06/17/23 08:29 Lorazepam 2 Mg/Ml Inj IVP 0.5 mg Q6H PRN Administration Nausea And Vomiting Ondansetron HCl 4 mg 06/17/23 04:37 06/17/23 04:57 Ondansetron 2 Mg/Ml Inj IVP 06/17/23 04:38 4 mg ONCE ONE Administration Oxycodone HCl 5 mg 06/17/23 04:49 06/17/23 05:10 Oxycodone 5 Mg Tablet PO 06/17/23 04:50 5 mg ONCE ONE Administration Pantoprazole Sodium 40 mg 06/17/23 04:49 06/17/23 04:57 Pantoprazole Sodium 40 Mg Inj IVP 06/17/23 04:50 40 mg ONCE ONE Administration Prochlorperazine 5 mg 06/17/23 05:29 06/17/23 05:34 Prochlorperazine 5 Mg/Ml Vial IV 06/17/23 05:30 5 mg ONCE ONE Administration <Darrell Mora DO - Last Filed: 06/17/23 18:30> Medical Decision Making MDM Narrative Medical decision making narrative: Patient was signed out to me pending final disposition when I arrived at 16:00. The patient was transferred to [facility] at 18:15. No changes occurred during my shift. <Darrell Mora DO - Last Filed: 06/17/23 18:30> Lab Data Lab results reviewed: Yes I reviewed the patient's lab results <Callie Brown MD - Last Filed: 06/17/23 23:57> Lab results narrative: The leukocytosis is quite surprising. All neutrophils to which does make me quite concerned for an infection. Potentially necrotizing pancreatitis. The hypokalemia is not really surprising. The elevated CRP is not really surprising. Her liver looks healthier than previous visits which is great. Obviously the urine is very concentrated, she looks a little acidotic which is not unexpected in the setting of her severe dehydration. Most notably, the elevation in lipase consistent with pancreatitis. Will get a CT <Callie Brown MD - Last Filed: 06/17/23 23:57> Labs: Lab Results 06/17/23 06/17/23 Range/Units 04:29 05:05 WBC 19.62 H (4.50-11.00) K/uL RBC 4.54 (4.00-5.20) m/uL Hgb 14.7 (12.0-16.0) gm/dL Hct 43.5 (33.0-51.0) % MCV 96 (80-100) fL MCH 32 (26-34) pg MCHC 34 (32-36) gm/dL RDW Coeff of Unruly 14.5 (11.5-15.5) % Plt Count 291 (140-440) K/uL Neut % (Auto) 88.9 H (42.0-72.0) % Lymph % (Auto) 5.5 L (20-44) % [place] % (Auto) 5.1 (0.0-11.0) % Eos % (Auto) 0.0 (0.0-7.0) % Baso % (Auto) 0.1 (0.0-3.0) % Neut # (Auto) 17.40 H (1.7-7.0) K/uL Lymph # (Auto) 1.10 (0.90-2.90) K/uL [place] # (Auto) 1.00 H (0.00-0.90) K/UL Eos # (Auto) 0.00 (0.00-0.50) K/uL Baso # (Auto) 0.00 (0.00-0.30) K/uL Abs Immat Gran (auto) 0.10 (0.00-0.30) K/uL Imm/Tot Granulo (auto) 0.4 % Sodium 134 L (135-149) mmol/L Potassium 3.0 L (3.6-5.1) mmol/L Chloride 94 L (96-114) mmol/L Carbon Dioxide 16 L (20-32) mmol/L Anion Gap 24 H (7-15) mEq/L BUN 24 (5-24) mg/dL Creatinine 0.6 (0.5-1.5) mg/dL Estimated Creat Clear 88.93 Estimated GFR 121 ml/min Glucose 164 H (60-115) mg/dL Lactate 1.8 (0.5-1.9) mmol/L Calcium 10.6 (8.4-10.6) mg/dL Magnesium 2.3 (1.5-2.6) mg/dL Total Bilirubin 1.3 (0.1-1.5) mg/dL AST 37 H (12-35) U/L ALT 20 (4-35) U/L Alkaline Phosphatase 80 (40-150) U/L Ammonia < 9.0 L (13.1-30.0) umol/L C-Reactive Protein 2.4 H (0.5-1.0) mg/dL Total Protein 9.3 H (6.0-8.3) g/dL Albumin 5.5 H (3.3-5.0) g/dL Lipase 1333 H (23-300) U/L Urine Color Yellow (Yellow) Urine Appearance Clear (Clear) Urine pH 6.0 (5.0-8.5) Ur Specific [place] >= 1.030 (1.000-1.030) Urine Protein 2+ A (Negative) Urine Glucose (UA) Negative (Negative) Urine Ketones 4+ A (Negative) Urine Blood 3+ A (Negative) Urine Nitrite Negative (Negative) Urine Bilirubin 2+ A (Negative) Urine Urobilinogen 0.2 (0.2-1.0) Ur Leukocyte Esterase Negative (Negative) Urine RBC 5-10 A (0-2) Urine WBC 2-5 (0-5) Ur Squamous Epith Cells Few (None-Few) Amorphous Sediment Few A (None) Urine Bacteria Few A (None) Hyaline Casts Few (None-Few) Urine Mucus Few A (None) Urine HCG, Qual Negative (Negative) Ethyl Alcohol < 0.01 L (0.01-0.03) % <Callie Brown MD - Last Filed: 06/17/23 23:57> Lab Results 06/17/23 06/17/23 Range/Units 04:29 05:05 WBC 19.62 H (4.50-11.00) K/uL RBC 4.54 (4.00-5.20) m/uL Hgb 14.7 (12.0-16.0) gm/dL Hct 43.5 (33.0-51.0) % MCV 96 (80-100) fL MCH 32 (26-34) pg MCHC 34 (32-36) gm/dL RDW Coeff of Unruly 14.5 (11.5-15.5) % Plt Count 291 (140-440) K/uL Neut % (Auto) 88.9 H (42.0-72.0) % Lymph % (Auto) 5.5 L (20-44) % [place] % (Auto) 5.1 (0.0-11.0) % Eos % (Auto) 0.0 (0.0-7.0) % Baso % (Auto) 0.1 (0.0-3.0) % Neut # (Auto) 17.40 H (1.7-7.0) K/uL Lymph # (Auto) 1.10 (0.90-2.90) K/uL [place] # (Auto) 1.00 H (0.00-0.90) K/UL Eos # (Auto) 0.00 (0.00-0.50) K/uL Baso # (Auto) 0.00 (0.00-0.30) K/uL Abs Immat Gran (auto) 0.10 (0.00-0.30) K/uL Imm/Tot Granulo (auto) 0.4 % Sodium 134 L (135-149) mmol/L Potassium 3.0 L (3.6-5.1) mmol/L Chloride 94 L (96-114) mmol/L Carbon Dioxide 16 L (20-32) mmol/L Anion Gap 24 H (7-15) mEq/L BUN 24 (5-24) mg/dL Creatinine 0.6 (0.5-1.5) mg/dL Estimated Creat Clear 88.93 Estimated GFR 121 ml/min Glucose 164 H (60-115) mg/dL Lactate 1.8 (0.5-1.9) mmol/L Calcium 10.6 (8.4-10.6) mg/dL Magnesium 2.3 (1.5-2.6) mg/dL Total Bilirubin 1.3 (0.1-1.5) mg/dL AST 37 H (12-35) U/L ALT 20 (4-35) U/L Alkaline Phosphatase 80 (40-150) U/L Ammonia < 9.0 L (13.1-30.0) umol/L C-Reactive Protein 2.4 H (0.5-1.0) mg/dL Total Protein 9.3 H (6.0-8.3) g/dL Albumin 5.5 H (3.3-5.0) g/dL Lipase 1333 H (23-300) U/L Urine Color Yellow (Yellow) Urine Appearance Clear (Clear) Urine pH 6.0 (5.0-8.5) Ur Specific [place] >= 1.030 (1.000-1.030) Urine Protein 2+ A (Negative) Urine Glucose (UA) Negative (Negative) Urine Ketones 4+ A (Negative) Urine Blood 3+ A (Negative) Urine Nitrite Negative (Negative) Urine Bilirubin 2+ A (Negative) Urine Urobilinogen 0.2 (0.2-1.0) Ur Leukocyte Esterase Negative (Negative) Urine RBC 5-10 A (0-2) Urine WBC 2-5 (0-5) Ur Squamous Epith Cells Few (None-Few) Amorphous Sediment Few A (None) Urine Bacteria Few A (None) Hyaline Casts Few (None-Few) Urine Mucus Few A (None) Urine HCG, Qual Negative (Negative) Ethyl Alcohol < 0.01 L (0.01-0.03) % <Pasquale Zavala MD - Last Filed: 06/25/23 05:49> Lab Results 06/17/23 06/17/23 Range/Units 04:29 05:05 WBC 19.62 H (4.50-11.00) K/uL RBC 4.54 (4.00-5.20) m/uL Hgb 14.7 (12.0-16.0) gm/dL Hct 43.5 (33.0-51.0) % MCV 96 (80-100) fL MCH 32 (26-34) pg MCHC 34 (32-36) gm/dL RDW Coeff of Unruly 14.5 (11.5-15.5) % Plt Count 291 (140-440) K/uL Neut % (Auto) 88.9 H (42.0-72.0) % Lymph % (Auto) 5.5 L (20-44) % [place] % (Auto) 5.1 (0.0-11.0) % Eos % (Auto) 0.0 (0.0-7.0) % Baso % (Auto) 0.1 (0.0-3.0) % Neut # (Auto) 17.40 H (1.7-7.0) K/uL Lymph # (Auto) 1.10 (0.90-2.90) K/uL [place] # (Auto) 1.00 H (0.00-0.90) K/UL Eos # (Auto) 0.00 (0.00-0.50) K/uL Baso # (Auto) 0.00 (0.00-0.30) K/uL Abs Immat Gran (auto) 0.10 (0.00-0.30) K/uL Imm/Tot Granulo (auto) 0.4 % Sodium 134 L (135-149) mmol/L Potassium 3.0 L (3.6-5.1) mmol/L Chloride 94 L (96-114) mmol/L Carbon Dioxide 16 L (20-32) mmol/L Anion Gap 24 H (7-15) mEq/L BUN 24 (5-24) mg/dL Creatinine 0.6 (0.5-1.5) mg/dL Estimated Creat Clear 88.93 Estimated GFR 121 ml/min Glucose 164 H (60-115) mg/dL Lactate 1.8 (0.5-1.9) mmol/L Calcium 10.6 (8.4-10.6) mg/dL Magnesium 2.3 (1.5-2.6) mg/dL Total Bilirubin 1.3 (0.1-1.5) mg/dL AST 37 H (12-35) U/L ALT 20 (4-35) U/L Alkaline Phosphatase 80 (40-150) U/L Ammonia < 9.0 L (13.1-30.0) umol/L C-Reactive Protein 2.4 H (0.5-1.0) mg/dL Total Protein 9.3 H (6.0-8.3) g/dL Albumin 5.5 H (3.3-5.0) g/dL Lipase 1333 H (23-300) U/L Urine Color Yellow (Yellow) Urine Appearance Clear (Clear) Urine pH 6.0 (5.0-8.5) Ur Specific [place] >= 1.030 (1.000-1.030) Urine Protein 2+ A (Negative) Urine Glucose (UA) Negative (Negative) Urine Ketones 4+ A (Negative) Urine Blood 3+ A (Negative) Urine Nitrite Negative (Negative) Urine Bilirubin 2+ A (Negative) Urine Urobilinogen 0.2 (0.2-1.0) Ur Leukocyte Esterase Negative (Negative) Urine RBC 5-10 A (0-2) Urine WBC 2-5 (0-5) Ur Squamous Epith Cells Few (None-Few) Amorphous Sediment Few A (None) Urine Bacteria Few A (None) Hyaline Casts Few (None-Few) Urine Mucus Few A (None) Urine HCG, Qual Negative (Negative) Ethyl Alcohol < 0.01 L (0.01-0.03) % <Darrell Mora DO - Last Filed: 06/17/23 18:30> Imaging Data CT scan - abdomen: Attestation: I have reviewed the pertinent imaging results. <Callie Brown MD - Last Filed: 06/17/23 23:57> My impression: Peripancreatic density, likely fluid collection, and inflammation. <Callie Brown MD - Last Filed: 06/17/23 23:57> Radiologist's impression: Impression: 1. Mild interval decrease in inflammatory stranding surrounding the 2nd portion of the duodenum and pancreatic head with new hypodense region concerning for developing peripancreatic fluid collection. This results in mass effect and narrowing the infra hepatic IVC. Additionally, there is a similar appearing smaller collection anterior to the right kidney measuring up to 2.1 cm. 2. Gallbladder distention with mild pericholecystic edema, which may be reactive secondary to the adjacent duodenal/pancreatic inflammatory changes. Recommend correlation for right upper quadrant tenderness and consider ultrasound as clinically indicated. 3. Hepatic steatosis. <Callie Brown MD - Last Filed: 06/17/23 23:57> Discharge Plan Discharge Clinical Impression: Infected pancreatic pseudocyst <Callie Brown MD - Last Filed: 06/17/23 23:57> Patient Disposition: [facility] <Callie Brown MD - Last Filed: 06/17/23 23:57> Condition: Guarded <Callie Brown MD - Last Filed: 06/17/23 23:57>
[2023-06-17 04:53] LABS: Creatinine* 0.6 mg/dL (0.5-1.5); Est. Creatinine Clearance* 88.93; Estimated Glomerular Filt Rate 121 ml/min
[2023-06-17 04:54] LABS: Alanine Aminotransferase* 20 U/L (4-35); Alkaline Phosphatase* 80 U/L (40-150); Anion Gap 24 mEq/L (7-15); Aspartate Amino Transferase* 37 U/L (12-35); Bilirubin Total* 1.3 mg/dL (0.1-1.5); Blood Urea Nitrogen* 24 mg/dL (5-24); Carbon Dioxide* 16 mmol/L (20-32); Ethanol* < 0.01 % (0.01-0.03); Glucose* 164 mg/dL (60-115); Lipase* 1333 U/L (23-300); Total Protein* 9.3 g/dL (6.0-8.3)
[2023-06-17 04:55] LABS: Calcium* 10.6 mg/dL (8.4-10.6)
[2023-06-17 04:57] LABS: C Reactive Protein* 2.4 mg/dL (0.5-1.0)
[2023-06-17] MEDS: PANTOPRAZOLE SODIUM 40 MG INJ IVP (04:57)
[2023-06-17] MEDS: ONDANSETRON 2 MG/ML inj 4 MG IVP (04:57)
[2023-06-17] MEDS: 0.9 % SODIUM CHLORIDE 1000 ml 1,000 ML IV (04:57)
[2023-06-17 05:06] LABS: Magnesium* 2.3 mg/dL (1.5-2.6)
[2023-06-17] MEDS: OXYCODONE 5 MG TABLET PO (05:10)
[2023-06-17 05:12] LABS: Appearance Urine Clear (Clear); Bilirubin Urine 2+ (Negative); Blood Urine 3+ (Negative); Color Urine Yellow (Yellow); Glucose Urine Negative (Negative); Ketones Urine 4+ (Negative); Leukocyte Esterase Urine Negative (Negative); Nitrite Urine Negative (Negative); Protein Urine 2+ (Negative); Specific Gravity Urine >= 1.030 (1.000-1.030); Urobilinogen Urine 0.2 (0.2-1.0)
[2023-06-17 05:23] LABS: Amorphous Sediment Urine Few; Bacteria Urine Few; Hyaline Casts Urine Few (None-Few); Squamous Epithelial Cell Urine Few (None-Few); Ur HCG Qualitative* Negative (Negative)
[2023-06-17 05:24] LABS: Mucus Urine Few
--- NOTE | 2023-06-17 05:25 | CT_ITS ---
Patient: ANA MARIA OCHOA Facility:?[facility] Patient ID:?[id number] Site [id number]:?[id number]. Site :?[id number] Study:?CT-Abdomen/Pelvis with 46cc contrast-06/17/2023 6:28:06 AM Ordering Physician:Alice Muir Final Report: Indication: Anterior abdominal pain, leukocytosis, history of pancreatitis. Technique: CT of the abdomen and pelvis was performed following the administration of 46 mL Isovue 370. Comparison: 04/08/2023. Findings: Visualized lung bases: Clear. Liver: Similar hepatic steatosis. No focal liver lesion. Distended gallbladder with mild pericholecystic edema, which may be reactive versus due to primary gallbladder inflammation. No biliary ductal dilation. Pancreas: Ill-defined area hypoattenuation adjacent to the 2nd portion of the duodenum and pancreatic head measuring approximately 2.5 x 2.5 cm in axial dimensions this region measures greater than simple fluid density. No pancreatic ductal dilation. Slight decrease in inflammatory stranding about the pancreatic head. Spleen: Unremarkable. Adrenals: Unremarkable. Kidneys: There is a more organized hypodense collection along the anterior aspect of the interpolar right kidney measuring 2.1 x 1.0 cm in axial dimensions. This also measures greater than simple fluid attenuation. Symmetric renal enhancement. No nephrolithiasis or hydronephrosis. Aorta/IVC: Mass effect on the IVC secondary to the above-mentioned pancreatic findings. Abdominal aorta is unremarkable. Lymph nodes: No lymphadenopathy. Bowel: Nonobstructed bowel. Slight decrease in inflammatory stranding surrounding the 2nd portion of the duodenum. No intraperitoneal free air or fluid. Pelvis: Decompressed bladder. Otherwise unremarkable. Bones/body wall: Unremarkable for age. Impression: 1. Mild interval decrease in inflammatory stranding surrounding the 2nd portion of the duodenum and pancreatic head with new hypodense region concerning for developing peripancreatic fluid collection. This results in mass effect and narrowing the infra hepatic IVC. Additionally, there is a similar appearing smaller collection anterior to the right kidney measuring up to 2.1 cm. 2. Gallbladder distention with mild pericholecystic edema, which may be reactive secondary to the adjacent duodenal/pancreatic inflammatory changes. Recommend correlation for right upper quadrant tenderness and consider ultrasound as clinically indicated. 3. Hepatic steatosis. Please note that all CT scans at this facility use dose modulation, iterative reconstruction, and/or weight-based dosing when appropriate to reduce radiation dose to as low as reasonably achievable. Dictated by Mya Akins MD @ 06/17/2023 6:41:31 AM Signed by:?Mya Akins MD @06/17/2023 6:41:31 AM (Electronic Signature)
[2023-06-17 05:29] LABS: Ammonia* < 9.0 umol/L (13.1-30.0)
[2023-06-17] MEDS: PROCHLORPERAZINE 5 MG/ML VIAL IV (05:34)
[2023-06-17] MEDS: LACTATED RINGERS 1000 ML 1,000 ML 500 ML IV (05:34)
[2023-06-17] MEDS: HYDROmorphone 0.5 mg/0.5 ml inj IVP ×2 (05:34→14:16)
[2023-06-17] MEDS: POTASSIUM CHLORIDE 10 MEQ/100 ML PIGGYBACK 100 MEQ IVPB ×2 (07:12→08:09)
[2023-06-17] MEDS: 0.9 % SODIUM CHLORIDE 1000 ml 1,000 ML 75 ML IV (07:42)
[2023-06-17] MEDS: LORazepam 2 MG/ML inj 0.5 MG IVP (08:29)
[2023-06-17] MEDS: 0.9 % SODIUM CHLORIDE 1000 ml 1,000 ML 125 ML IV (16:32)
--- NOTE | 2023-06-17 21:58 | ED.NURSE ---
accessed note for updating RN from [facility] calling for pt medications.
== END 2023-06-17 18:24 | disposition short-term general hospital (02) ==
PROVIDERS: Family Medicine; Emergency Provider Student in an Organized Health Care Education/Training Program; PCP Family Medicine
DX: K86.3 Pseudocyst of pancreas (principal)
CPT/HCPCS: 36415; 74177; 80053; 81001; 81003; 81025; 82077; 82140; 83605; 83690; 83735; 85025; 86140; 87086; 96365; 96375; 99284; 99285; A9270; C9113; J0780; J1170; J2060; J2405; J3480; J7030; J7120; Q9967

== ENCOUNTER 2023-06-17 18:17 | Outpatient (CLI) | payer BC, SELFPAY | END 2023-06-17 18:18 | disposition home or self-care (01) | LOC: AMB 06-20 11:31 | PROVIDERS: PCP Family Medicine; Visit Provider Student in an Organized Health Care Education/Training Program | DX: K86.3 Pseudocyst of pancreas (principal) | CPT/HCPCS: A0425; A0427 ==